=== PATIENT | female | born 1970 | race Caucasian/White ===

== ENCOUNTER 2017-05-27 13:51 | Inpatient (IN) | payer MEDICAID ==
[~2017-05-27] VITALS: Ht 154.9 cm; Wt 78.4 kg
[2017-05-27 15:32] LABS: EOSINOPHILS % (AUTO) 0.04 % (1.0-6.0); HEMATOCRIT 46.2 % (36-46); HEMOGLOBIN 15.2 g/dL (12.0-16.0); LYMPHOCYTES # (AUTO) 1.1 K/uL (1.0-4.8); LYMPHOCYTES % (AUTO) 7.9 % (22.0-44.0); MEAN CORPUSCULAR HGB CONC 32.8 G/dL (31.0-37.0); MEAN CORPUSCULAR VOLUME 82 fL (80-100); MONOCYTES # (AUTO) 0.5 K/uL (0.1-1.0); MONOCYTES % (AUTO) 3.6 % (2.0-9.0); NEUTROPHILS # (AUTO) 11.8 K/uL (1.8-7.7); PLATELET COUNT (AUTO) 266 K/uL (150-450); RED BLOOD CELL COUNT(AUTO) 5.61 MIL/uL (4.00-5.20); RED CELL DISTRIBUTION WIDTH 14.5 % (11.5-14.5)
[2017-05-27 15:36] LABS: NEUTROPHILS % (AUTO) 88.4 % (40.0-70.0)
[2017-05-27 15:44] LABS: INR 1.1 (0.9-1.1); PROTHROMBIN TIME 11.5 SEC (9.4-11.6)
[2017-05-27 15:45] LABS: APPEARANCE,URINE CLOUDY (CLEAR); BILIRUBIN,URINE NEGATIVE (NEGATIVE); CALCIUM, TOTAL 10.1 mg/dL (8.8-10.5); CREATININE 1.57 mg/dL (0.60-1.30); GLUCOSE, URINE (UA) NEGATIVE (NEGATIVE); KETONES,URINE 15 mg/dL (NEGATIVE); LEUKOCYTE ESTERASE ,URINE NEGATIVE (NEGATIVE); NITRATE,URINE POSITIVE (NEGATIVE); OCCULT BLOOD,URINE TRACE (NEGATIVE); PH,URINE 5.5 (5.0-8.0); POTASSIUM 3.8 mmol/L (3.5-5.1); PROTEIN,URINE POS 1+ (NEGATIVE); UROBILINOGEN,URINE 0.2 mg/dL (<=1.0)
[2017-05-27 15:53] LABS: RBC,URINE 0-2 /HPF (0-2)
[2017-05-27 15:54] LABS: BACTERIA,URINE Moderate /HPF (None Seen)
[2017-05-27 15:55] LABS: SQUAMOUS EPITHELIAL CELL,UR Few /LPF (None Seen)
[2017-05-27 15:56] LABS: HYALINE CASTS, URINE 0-2 /LPF (None Seen)
[2017-05-27 15:58] LABS: ALBUMIN 4.3 g/dL (3.4-5.0); TOTAL PROTEIN, SERUM 8.8 g/dL (6.4-8.2)
[2017-05-27 16:05] LABS: AMPHET/METH SCREEN,URINE NEGATIVE (NEGATIVE); BARBITURATE SCREEN, URINE NEGATIVE (NEGATIVE); BENZODIAZEPINES SCREEN,URINE NEGATIVE (NEGATIVE); CANNABINOID SCREEN,URINE NEGATIVE (NEGATIVE); COCAINE SCREEN,URINE NEGATIVE (NEGATIVE); METHADONE SCREEN, URINE NEGATIVE (NEGATIVE); OPIATE SCREEN,URINE NEGATIVE (NEGATIVE); PHENCYCLIDINE SCREEN,URINE NEGATIVE (NEGATIVE)
[2017-05-27] MEDS ORDERED: SODIUM CHLORIDE 0.9% 1,000 ML IV ONE (16:30)
[2017-05-27 18:00] LABS: CREATININE 1.23 mg/dL (0.60-1.30); POTASSIUM 3.9 mmol/L (3.5-5.1)
[2017-05-27] MEDS ORDERED: CIPROFLOXACIN HCL 250 MG TABLET PO ONE (18:30)
[2017-05-27] MEDS ORDERED: CefTRIAXone 1 GM/DEXTROSE 50 ML IV ONE (20:45)
[2017-05-27] MEDS ORDERED: HALOPERIDOL LACTATE 5 MG/ML VIAL IM ONE (21:45)
[2017-05-28] MEDS ORDERED: HALOPERIDOL 5 MG TABLET PO PRN (00:15)
[2017-05-28] MEDS ORDERED: LORazepam 2 MG TABLET PO PRN (00:15)
[2017-05-28] MEDS ORDERED: ZOLPIDEM TARTRATE 10 MG TABLET PO PRN (00:15)
[2017-05-28 02:49] VITALS: BP 136/84
[2017-05-28] MEDS ORDERED: INFLUENZA VIRUS VACCINE QVS 2017-18 (3YR+)/PF 60 MCG/0.5 ML SYRINGE IM ONE (03:00)
[2017-05-28 08:39] VITALS: BP 138/70
[2017-05-28] MEDS: CIPROFLOXACIN HCL 500 MG TABLET PO SCH ×2 (11:59→17:26)
[2017-05-28 19:07] VITALS: BP 129/76
[2017-05-28] MEDS ORDERED: IBUPROFEN 400 MG TABLET PO PRN (20:00)
[2017-05-28] MEDS ORDERED: ACETAMINOPHEN 325 MG TABLET PO PRN (20:00)
[2017-05-28] MEDS: RisperiDONE 1 MG TABLET PO SCH (20:35)
[2017-05-29 07:35] LABS: CHOL/HDL RATIO 1.9 (3.9-5.7); THYROID STIMULATING HORMONE 1.39 uIU/mL (0.36-3.74)
[2017-05-29 09:03] VITALS: BP 139/70
[2017-05-29] MEDS: CIPROFLOXACIN HCL 500 MG TABLET PO SCH ×2 (09:29→18:00)
[2017-05-29] MEDS: RisperiDONE 1 MG TABLET PO SCH ×2 (09:29→21:45)
[2017-05-29 19:45] VITALS: BP 130/66
[2017-05-30] MEDS: CIPROFLOXACIN HCL 500 MG TABLET PO SCH ×2 (09:09→16:19)
[2017-05-30] MEDS: RisperiDONE 1 MG TABLET PO SCH ×2 (09:10→20:16)
[2017-05-30 09:45] VITALS: BP 108/62
[2017-05-30 17:00] VITALS: BP 138/92
[2017-05-31 08:15] VITALS: BP 139/97
[2017-05-31] MEDS: RisperiDONE 1 MG TABLET PO SCH ×2 (09:09→20:41)
[2017-05-31] MEDS: CIPROFLOXACIN HCL 500 MG TABLET PO SCH ×2 (09:09→17:12)
[2017-05-31 17:18] VITALS: BP 138/84
[2017-06-01] MEDS: CIPROFLOXACIN HCL 500 MG TABLET PO SCH ×2 (08:56→16:20)
[2017-06-01] MEDS: RisperiDONE 1 MG TABLET PO SCH ×2 (08:56→20:31)
[2017-06-01 10:53] VITALS: BP 119/88
[2017-06-01 21:16] VITALS: BP 121/79
[2017-06-02] MEDS: RisperiDONE 1 MG TABLET PO SCH ×2 (08:59→20:04)
[2017-06-02] MEDS: CIPROFLOXACIN HCL 500 MG TABLET PO SCH ×2 (08:59→16:15)
[2017-06-02 09:13] VITALS: BP 133/74
[2017-06-02 16:47] VITALS: BP 138/83
[2017-06-03] MEDS: CIPROFLOXACIN HCL 500 MG TABLET PO SCH ×2 (09:01→17:21)
[2017-06-03] MEDS: RisperiDONE 1 MG TABLET PO SCH ×2 (09:01→21:33)
[2017-06-03 09:20] VITALS: BP 130/83
[2017-06-03 16:50] VITALS: BP 138/85
[2017-06-04 09:12] VITALS: BP 120/80
[2017-06-04] MEDS: RisperiDONE 1 MG TABLET PO SCH ×2 (10:53→20:58)
[2017-06-04 17:25] VITALS: BP 128/79
[2017-06-05] MEDS: CIPROFLOXACIN HCL 250 MG TABLET PO SCH ×2 (09:41→17:03)
[2017-06-05] MEDS: RisperiDONE 1 MG TABLET PO SCH ×2 (09:41→20:33)
[2017-06-05 10:35] VITALS: BP 120/78
[2017-06-05 17:23] VITALS: BP 124/90
[2017-06-06 05:40] VITALS: BP 118/76
[2017-06-06] MEDS: RisperiDONE 1 MG TABLET PO SCH ×2 (09:06→21:13)
[2017-06-06] MEDS: CIPROFLOXACIN HCL 250 MG TABLET PO SCH ×2 (09:06→16:45)
[2017-06-06 09:30] VITALS: BP 131/79
[2017-06-06 20:04] VITALS: BP 124/58
[2017-06-07 09:09] VITALS: BP 125/74
[2017-06-07] MEDS: RisperiDONE 1 MG TABLET PO SCH ×2 (10:10→20:41)
[2017-06-07 21:41] VITALS: BP 123/62
[2017-06-08 08:00] VITALS: BP 123/83
[2017-06-08] MEDS: RisperiDONE 1 MG TABLET PO SCH ×2 (09:16→20:30)
[2017-06-08 16:15] VITALS: BP 131/81
[2017-06-09 06:18] VITALS: BP 111/66
[2017-06-09 08:30] VITALS: BP 136/78
[2017-06-09] MEDS: RisperiDONE 1 MG TABLET PO SCH (09:15)
[2017-06-09] MEDS ORDERED: RISP1TAB89 PO (16:27)
== END 2017-06-09 18:35 | disposition home or self-care (01) | DRG 751 ==
LOC: EMS 13:53 → 3EI 05-28 01:45 → EDBD 05-28 01:45
PROVIDERS: ADMIT Psychiatry & Neurology Child & Adolescent Psychiatry; ATTEND Psychiatry & Neurology Child & Adolescent Psychiatry
DX: F29 Unspecified psychosis not due to a substance or known physiological condition (principal); K76.0 Fatty (change of) liver, not elsewhere classified; F20.1 Disorganized schizophrenia; F79 Unspecified intellectual disabilities; Z91.19 Patient's noncompliance with other medical treatment and regimen; N39.0 Urinary tract infection, site not specified; Z28.21 Immunization not carried out because of patient refusal; F41.9 Anxiety disorder, unspecified; R00.0 Tachycardia, unspecified; R41.82 Altered mental status, unspecified; R62.50 Unspecified lack of expected normal physiological development in childhood
CPT/HCPCS: 70450; 74176; 84443; 87086; 96361; 96365; 96372; 99285; G0480; J0696; J1630